=== PATIENT | female | born 1990 | race Asian ===

== ENCOUNTER 2018-07-29 13:27 | Inpatient (IN) | END 2018-08-01 14:18 | disposition home or self-care (01) | DRG 807 ==

== ENCOUNTER 2019-01-27 13:27 | Emergency (ER) | payer OTHER ==
[~2019-01-27] VITALS: Ht 152.4 cm; Wt 51.0 kg
[~2019-01-27 13:27] MED LIST: PREN-6 PO
[2019-01-27 13:30] VITALS: BP 108/52; PULSE 76; RESP 18; Ht 152.4 cm; Wt 51.0 kg
[2019-01-27] MEDS ORDERED: TETR15DR63 LEFT EYE (14:26)
--- NOTE | 2019-01-27 14:29 | ERD ---
ER Documentation Chief Complaint Chief Complaint left eye pain & itching x6 days HPI 28-year-old female reports left eye itchiness and slight pain x6 days. She reports that she was washing her face with some cleanser and thinks that something may have gotten in her eye. She denies a previous history of this incident or any other previous injuries to the left eye. She denies any changes in her vision. She reports she bought uvlb-wug-acxemeg pinkeye drops with no relief of her symptoms. She denies any fevers, any pain with extraocular movements or orbital swelling. She denies feeling any objects in her eyes. ROS All systems reviewed and are negative except as per history of present illness. Medications Home Meds Active Scripts Tetrahydrozoline Hcl* (Visine*) 0.05% - 15 Ml Drops, 2 DROP LEFT EYE up to 4 times a day , #1 EA Prov:MANJIT DVAIS PA-C 01/27/19 Reported Medications Vits #93-Iron Fum-FA ( Formula) 1 Each Tablet, 1 TAB PO DAILY, TAB 07/29/18 Allergies Allergies: Coded Allergies: No Known Drug Allergies (Verified Allergy, Unknown, 07/29/18) PMhx/Soc Medical and Surgical Hx: pt denies Medical Hx, pt denies Surgical Hx Hx Alcohol Use: No Hx Substance Use: No Hx Tobacco Use: No Smoking Status: Never smoker FmHx Family History: No diabetes Physical Exam Vitals Vital Signs Date Temp Pulse Resp B/P (MAP) Pulse Ox O2 O2 Flow FiO2 Time Delivery Rate 01/27/19 97.9 76 18 108/52 99 13:30 (70) Physical Exam Const: No acute distress Head: Atraumatic Eyes: Left eye: PERRLA, nonswollen eyelids, no excess tearing, no visible cuts or abrasions, normal vision, no pain with EOMs. No foreign objects seen with floor seen stain under Mendez lamp, no abrasion seen under fluoroscopy to stain and Mendez lamp. No foreign objects hiding under eyelids with eyelid inversion. Cullom/red conjuctiva lateral eye ENT: Normal External Ears, Nose and Mouth. Neck: Full range of motion. No meningismus. Resp: Clear to auscultation bilaterally Cardio: Regular rate and rhythm, no murmurs Abd: Soft, non tender, non distended. Normal bowel sounds Skin: No petechiae or rashes Back: No midline or flank tenderness Ext: No cyanosis, or edema Neur: Awake and alert Psych: Normal Mood and Affect Results 24 hrs Current Medications Medications Dose Sig/Luis Start Time Status Last (Trade) Ordered Route PRN Stop Time Admin Dose Reason Admin Tetracaine 1 drop ONCE ONCE 01/27/19 HCl LEFT EYE 14:30 (Tetracaine 01/27/19 14:31 0.5% Steri-Unit Philomena) Fluorescein 1 strip ONCE ONCE 01/27/19 Sodium LEFT EYE 14:30 (Eubdx-O-Qrgz 01/27/19 14:31 p) Procedures/MDM ED COURSE: The patient was stable throughout ED course. I kept the patient informed of laboratory and diagnostic imaging results throughout the ED course. PROCEDURES: Fluorescein stain under Mendez lamp MEDICATIONS GIVEN: Tetracaine Patient tolerated medication well with no adverse reactions. Patient reported improvement in pain. MEDICAL DECISION MAKING: Patient is a 28-year-old female presenting of left eye itchiness and slight pain for 6 days. Patient states that something may have gotten in her eye. Fluorescein stain was done under lamp with no foreign bodies, abrasions found. Her conjunctiva is to be slightly red laterally she experience is no visual defects. Is no pain with extraocular movement or orbital swelling. Appears to be allergic conjunctivitis she is experiencing. I prescribed her Visine eyedrops for this and told her to apply it up to 4 times a day as needed. H&P and other data not c/w emergent process (eg. glaucoma, keratitis, globe perf, corneal ulcer). Her vital signs were reviewed. Patient is afebrile. Patient was not hypoxic. Patient was hemodynamically stable. PRESCRIPTION: Visine eye drops DISCHARGE: At this time, patient is stable for discharge and outpatient management. I have instructed the patient to follow-up with his/her primary care physician in 1-2 days. I have discussed with the patient the possibility of needing to see a specialist for further workup and imaging studies if symptoms persist. I have instructed the patient to promptly return to the ER for any new or worsening symptoms including increased pain, fever, nausea, vomiting, weakness or LOC. The patient and/or family expressed understanding of and agreement with this plan. All questions were answered. Home care instructions were provided. Disclaimer: Inadvertent spelling and grammatical errors are likely due to EHR/dictation software use and do not reflect on the overall quality of patient care. Also, please note that the electronic time recorded on this note does not necessarily reflect the actual time of the patient encounter. Departure Diagnosis: Primary Impression: Allergic conjunctivitis Laterality: left Qualified Codes: H10.12 - Acute atopic conjunctivitis, left eye Condition: Fair Patient Instructions: Conjunctivitis, Allergic Referrals: [facility] YOU HAVE RECEIVED A MEDICAL SCREENING EXAM AND THE RESULTS INDICATE THAT YOU DO NOT HAVE A CONDITION THAT REQUIRES URGENT TREATMENT IN THE EMERGENCY DEPARTMENT. FURTHER EVALUATION AND TREATMENT OF YOUR CONDITION CAN WAIT UNTIL YOU ARE SEEN IN YOUR DOCTORS OFFICE WITHIN THE NEXT 1-2 DAYS. IT IS YOUR RESPONSIBILITY TO MAKE AN APPOINTMENT FOR FOLOW-UP CARE. IF YOU HAVE A PRIMARY DOCTOR --you should call your primary doctor and schedule an appointment IF YOU DO NOT HAVE A PRIMARY DOCTOR YOU CAN CALL OUR PHYSICIAN REFERRAL HOTLINE AT IF YOU CAN NOT AFFORD TO SEE A PHYSICIAN YOU CAN CHOSE FROM THE FOLLOWING [facility][1] [address] [facility] [address] [facility] [facility] [address] [facility] [address] [facility] [address] [facility]. [facility]. [address] [facility]. [facility] YOU HAVE RECEIVED A MEDICAL SCREENING EXAM AND THE RESULTS INDICATE THAT YOU DO NOT HAVE A CONDITION THAT REQUIRES URGENT TREATMENT IN THE EMERGENCY DEPARTMENT. FURTHER EVALUATION AND TREATMENT OF YOUR CONDITION CAN WAIT UNTIL YOU ARE SEEN IN YOUR DOCTORS OFFICE WITHIN THE NEXT 1-2 DAYS. IT IS YOUR RESPONSIBILITY TO MAKE AN APPOINTMENT FOR FOLOW-UP CARE. IF YOU HAVE A PRIMARY DOCTOR --you should call your primary doctor and schedule and appointment IF YOU DO NOT HAVE A PRIMARY DOCTOR YOU CAN CALL OUR PHYSICIAN REFERRAL HOTLINE AT . IF YOU CAN NOT AFFORD TO SEE A PHYSICIAN YOU CAN CHOSE FROM THE FOLLOWING [facility] INSTITUTIONS: [facility] [address] [place] [address] [facility] [address] [place] [address] [facility] [address] [place] [address] Additional Instructions: Call your primary care doctor TOMORROW for an appointment during the next 1-2 days.See the doctor sooner or return here if your condition worsens before your appointment time. MANJIT DAVIS PA-C Jan 27, 2019 14:29
[2019-01-27] MEDS ORDERED: FLUORESCEIN STRIP LEFT EYE ONE (14:30)
[2019-01-27] MEDS ORDERED: TETRACAINE 0.5% 4 ML OPH LEFT EYE ONE (14:30)
== END 2019-01-27 14:41 | disposition home or self-care (01) ==
LOC: FTE 13:27
DX: H10.12 Acute atopic conjunctivitis, left eye (principal)
CPT/HCPCS: Z7502; Z7610; 99283